=== PATIENT | female | born 1995 | race American Indian/Alaskan Native ===

== ENCOUNTER 2017-09-18 15:32 | Emergency (ER) | payer BC ==
[2017-09-18 15:44] VITALS: RESP 18; O2SAT 100
[2017-09-18] MEDS ORDERED: Sodium Chloride 0.9% 1,000 ML IV ONE (15:59)
--- NOTE | 2017-09-18 16:27 | C.PDOC ---
History Of Present Illness 22 year old female, with past medical history of ovarian cyst, presents to Emergency Department for evaluation of constant left lower quadrant abdominal pain radiating to back since yesterday. (+) nausea. Denies taking any over the counter medications for symptoms. Patient notes she is currently being treated by OBGYN who prescribed her control medication. Denies vomiting, diarrhea , dysuria, hematuria, frequency, vaginal discharge, or fever. LMP was 09/12/17. Time Seen by Provider: 09/18/17 15:50 Chief Complaint (Nursing): Abdominal Pain History Per: Patient History/Exam Limitations: no limitations Onset/Duration Of Symptoms: Days (1) Current Symptoms Are (Timing): Still Present Location Of Pain/Discomfort: LLQ Radiation Of Pain To:: Back Quality Of Discomfort: "Pain" Associated Symptoms: Nausea, Back Pain. denies: Vomiting, Diarrhea, Loss Of Appetite, Chest Pain, Constipation, Urinary Symptoms Exacerbating Factors: None Alleviating Factors: None Last Bowel Movement: Yesterday Recent travel outside of the [place]: No Additional History Per: Patient Abnormal Vaginal Bleeding: No Past Medical History Reviewed: Historical Data, Nursing Documentation, Vital Signs Vital Signs: Last Vital Signs Temp 97.9 F 09/18/17 18:50 Pulse 72 09/18/17 18:50 Resp 18 09/18/17 18:50 BP 100/62 09/18/17 18:50 Pulse Ox 100 09/18/17 18:57 Family History: States: Unknown Family Hx - Social History Hx Alcohol Use: No Hx Substance Use: No - Immunization History Hx Tetanus Toxoid Vaccination: No Hx Influenza Vaccination: No Hx Pneumococcal Vaccination: No Review Of Systems Except As Marked, All Systems Reviewed And Found Negative. Constitutional: Negative for: Fever, Chills Cardiovascular: Negative for: Chest Pain Respiratory: Negative for: Shortness of Breath Gastrointestinal: Positive for: Nausea, Abdominal Pain. Negative for: Vomiting , Diarrhea, Constipation Genitourinary: Negative for: Dysuria, Frequency, Hematuria, Vaginal Discharge Musculoskeletal: Positive for: Back Pain Neurological: Negative for: Headache, Dizziness Physical Exam - Physical Exam Appears: Non-toxic, No Acute Distress Skin: Normal Color, Warm, Dry Head: Atraumatic, Normacephalic Eye(s): bilateral: Normal Inspection Oral Mucosa: Moist Neck: Normal ROM, Supple Chest: Symmetrical Cardiovascular: Rhythm Regular, No Murmur Respiratory: Normal Breath Sounds, No Rales, No Rhonchi, No Wheezing Gastrointestinal/Abdominal: Soft, Tenderness (LLQ), No Guarding, No Rebound Back: No CVA Tenderness, No Vertebral Tenderness, No Paraspinal Tenderness Extremity: Bilateral: Atraumatic, Normal ROM Neurological/Psych: Oriented x3, Normal Speech ED Course And Treatment - Laboratory Results Result Diagrams: 09/18/17 16:24 09/18/17 16:24 Lab Interpretation: No Acute Changes O2 Sat by Pulse Oximetry: 100 (RA) Pulse Ox Interpretation: Normal - CT Scan/US Pelvis Transvag US Other Rad Studies (CT/US): Read By Radiologist, Radiology Report Reviewed CT/US Interpretation: Patient Name / ID : OCTAVIANO [id number] / [id number]. Exam Date : 09/18/2017 16:56:21 ( Approved ). Study Comment : Sex / Age : F / 22Y. Creator : Pati Castro MD. Dictator : Pati Castro MD. [employer] Law Clerk : Publications Distribution Clerk : Pati Castro MD. Approver2 : Report Date : 18:46:20. My Comment : . HISTORY: LLQ pain, h.o ovarian cyst. COMPARISON: None available. TECHNIQUE: Real-time transabdominal pelvic ultrasound was performed. In addition a transvaginal pelvic ultrasound was necessary to better depict pelvic anatomy. FINDINGS: UTERUS: Measures 9.4 x 6.6 x 6.5 cm. Anteverted. 3.3 x 2.9 x 4.0 cm anterior uterine mass appears consistent with a fibroid. ENDOMETRIUM: Measures 6 mm in diameter. CERVIX: No cervical abnormality identified. RIGHT OVARY: Measures 4.8 x 3.2 x 4.3 cm. Blood flow is demonstrated. 1.1 x 1.4 x 1 cm and 1.3 x 1.0 x 1.7 cm right ovarian cysts. Dilated somewhat tubular structure noted in the region of the right adnexa ; hydrosalpinx must be considered. LEFT OVARY: Measures 6.2 x 4.2 x 5.4 cm. Blood flow is demonstrated. 4.8 x 3.5 x 4.6 cm complex appearing heterogeneous mostly hypodense lesion, likely complex cyst. FREE FLUID: No significant free fluid noted. OTHER FINDINGS: None. IMPRESSION: Dilated somewhat tubular structure noted in the region of the right adnexa ; hydrosalpinx must be considered. 4.8 x 3.5 x 4.6 cm complex appearing heterogeneous mostly hypodense lesion, likely complex cyst. Recommend 6 week ultrasound follow-up to assess for complete resolution. Two right ovarian cysts measuring approximately 1.4 cm and 1.7 cm. 4 cm anterior uterine fibroid. Medical Decision Making Medical Decision Making: Plan: * Blood work * Urinalysis * Pelvis Ultrasound * IV fluids * Reassess and dispo Progress note: Patient remained afebrile alert and oriented with stable vital signs during ER evaluation. Discussed results with patient, and copy of report was provided. On re-examination, patient is resting comfortably in no acute distress. Patient reports improvement of symptoms. Patient feels comfortable going home and will be discharged. Patient given follow up instructions. Instructed to return to ER if symptoms worsen or new symptoms arise. Disposition Counseled Patient/Family Regarding: Need For Followup, Rx Given - Disposition Disposition: HOME/ ROUTINE Disposition Time: 19:15 Condition: GOOD Additional Instructions: Thank you for letting us take care of you today. Your provider was MARCUS Edwards. Your labs were normal. US shows ovarian cyst. Take Ibuprofen as needed for pain. Follow up with your human performance professor for further evaluation. It may take several days for your symptoms to resolve. Return to the Emergency Department if your symptoms worsen, do not improve, or if you have any other problems. Thank you for allowing the [email or web address] team to be part of your care today. Prescriptions: Ibuprofen [Motrin] 600 mg PO Q8 #30 tab Instructions: Ovarian Cyst (ED) Forms: [employer] (Vietnamese) - POA Present On Arrival: None - Clinical Impression Clinical Impression: Ovarian cyst, Fibroid uterus - PA / SUPERVISOR TRAVEL TRAILER / Resident Statement MD/DO has reviewed & agrees with the documentation as recorded. - Scribe Statement The provider has reviewed the documentation as recorded by the Scribe Kripal Potts All medical record entries made by the Noni were at my direction and personally dictated by me. I have reviewed the chart and agree that the record accurately reflects my personal performance of the history, physical exam, medical decision making, and the department course for this patient. I have also personally directed, reviewed, and agree with the discharge instructions and disposition.
[2017-09-18 16:31] LABS: BASO # 0.1 K/uL (0.0-0.2); BASO % 0.7 % (0.0-2.0); HEMATOCRIT 31.6 % (34.0-47.0); LYMPH # 1.7 K/uL (1.0-4.3); LYMPH % 21.1 % (20.0-40.0); MEAN CORPUSCULAR HEMOGLOBIN 26.3 pg (27.0-31.0); MEAN CORPUSCULAR HGB CONC 32.9 g/dL (33.0-37.0); MEAN PLATELET VOLUME 7.3 fL (7.2-11.7); MONO # 0.5 K/uL (0.0-0.8); MONO % 6.1 % (0.0-10.0); RED CELL DISTRIBUTION WIDTH 19.2 % (11.5-14.5); WHITE BLOOD COUNT 8.1 K/uL (4.8-10.8)
[2017-09-18] MEDS ORDERED: Sodium Chloride 0.9% 1,000 ML ONE (16:31)
[2017-09-18 16:34] LABS: RBC URINE 5 /hpf (0-3); URINE BACTERIA OCC (<OCC); URINE BILIRUBIN NEGATIVE (NEGATIVE); URINE BLOOD 2+ (NEGATIVE); URINE COLOR Yellow (YELLOW); URINE GLUCOSE (UA) NORMAL (Normal); URINE KETONE NEGATIVE (NEGATIVE); URINE LEUKOCYTE ESTERASE 1+ Leu/uL (Negative); URINE PROTEIN NEGATIVE (NEGATIVE); URINE UROBILINOGEN NORMAL mg/dL (0.2-1.0); WBC URINE 11 /hpf (0-5)
[2017-09-18 16:35] LABS: CHLORIDE 100 mmol/L (98-107)
[2017-09-18 16:36] LABS: POTASSIUM 4.2 mmol/L (3.6-5.2); SODIUM 133 mmol/L (132-148)
[2017-09-18 16:38] LABS: ALB/GLOB RATIO 1.3 (1.0-2.1); ALKALINE PHOSPHATASE 55 U/L (38-126); ALT/SGPT 37 U/L (9-52); AST/SGOT 31 U/L (14-36); BILIRUBIN,TOTAL 0.4 mg/dL (0.2-1.3); BLOOD UREA NITROGEN 9 mg/dL (7-17); CARBON DIOXIDE 23 mmol/L (22-30); GFR AFRICAN-AMERICAN > 60; TOTAL PROTEIN 7.8 g/dL (6.3-8.3)
[2017-09-18 16:39] LABS: CALCIUM 9.1 mg/dl (8.6-10.4); GLUCOSE,RANDOM 81 mg/dL (65-105)
--- NOTE | 2017-09-18 18:47 | US ---
HISTORY: LLQ pain, h.o ovarian cyst COMPARISON: None available. TECHNIQUE: Real-time transabdominal pelvic ultrasound was performed. In addition a transvaginal pelvic ultrasound was necessary to better depict pelvic anatomy. FINDINGS: UTERUS: Measures 9.4 x 6.6 x 6.5 cm. Anteverted. 3.3 x 2.9 x 4.0 cm anterior uterine mass appears consistent with a fibroid. ENDOMETRIUM: Measures 6 mm in diameter. CERVIX: No cervical abnormality identified. RIGHT OVARY: Measures 4.8 x 3.2 x 4.3 cm. Blood flow is demonstrated. 1.1 x 1.4 x 1 cm and 1.3 x 1.0 x 1.7 cm right ovarian cysts. Dilated somewhat tubular structure noted in the region of the right adnexa ; hydrosalpinx must be considered. LEFT OVARY: Measures 6.2 x 4.2 x 5.4 cm. Blood flow is demonstrated. 4.8 x 3.5 x 4.6 cm complex appearing heterogeneous mostly hypodense lesion, likely complex cyst. FREE FLUID: No significant free fluid noted. OTHER FINDINGS: None. IMPRESSION: Dilated somewhat tubular structure noted in the region of the right adnexa ; hydrosalpinx must be considered. 4.8 x 3.5 x 4.6 cm complex appearing heterogeneous mostly hypodense lesion, likely complex cyst. Recommend 6 week ultrasound follow-up to assess for complete resolution. Two right ovarian cysts measuring approximately 1.4 cm and 1.7 cm. 4 cm anterior uterine fibroid.
[2017-09-18 18:51] VITALS: BP 100/62; PULSE 72; TEMP 97.9
== END 2017-09-18 19:16 | disposition home or self-care (01) ==
LOC: C.ER 15:32
DX: N83.209 Unspecified ovarian cyst, unspecified side (principal); D25.9 Leiomyoma of uterus, unspecified
CPT/HCPCS: 76830; 76856; 80053; 81001; 84703; 85025; 96361; 96374; 99285; J1885; J7040